=== PATIENT | male | born 1950 | race African-American/Black ===

== ENCOUNTER 2019-03-16 12:43 | Emergency (ER) | payer MEDICARE, MEDICAID ==
[~2019-03-16] VITALS: Ht 172.7 cm; Wt 50.0 kg
[2019-03-16] MEDS ORDERED: ACETAMINOPHEN 325MG TABLET PO STA (15:04)
[2019-03-16 18:15] VITALS: BP 141/60
== END 2019-03-16 18:42 | disposition home or self-care (01) ==
LOC: ER 12:43
DX: S09.8XXA Other specified injuries of head, initial encounter (principal); F03.90 Unspecified dementia, unspecified severity, without behavioral disturbance, psychotic disturbance, mood disturbance, and anxiety; G40.909 Epilepsy, unspecified, not intractable, without status epilepticus; Z88.0 Allergy status to penicillin; W01.0XXA Fall on same level from slipping, tripping and stumbling without subsequent striking against object, initial encounter; Y93.89 Activity, other specified; Y92.018 Other place in single-family (private) house as the place of occurrence of the external cause
CPT/HCPCS: 99284

== ENCOUNTER 2019-04-26 21:56 | Emergency (ER) | payer MEDICARE, MEDICAID ==
[~2019-04-26] VITALS: Ht 177.8 cm; Wt 59.0 kg
[2019-04-26] MEDS ORDERED: OLANZAPINE 10 MG/VIAL IM ONE (23:00)
[2019-04-26] MEDS ORDERED: TETANUS, DIPHTHERIA, PERTUSSIS VAC/PF 0.5ML (>7YR OLD) IM ONE (23:00)
[2019-04-26] MEDS ORDERED: LIDOCAINE HCL/EPINEPHRINE 1%-EPI 1:100,000 30 ML VIAL INFIL ONE (23:00)
[2019-04-26] MEDS ORDERED: LIDOCAINE HCL/EPINEPHRINE 1%-EPI 1:100,000 20 ML VIAL INFIL SCH (23:00)
[2019-04-26] MEDS: CLINDAMYCIN HCL 150MG CAPSULE PO SCH ×2 (23:26→23:39)
[2019-04-27 01:47] VITALS: BP 122/72
== END 2019-04-27 02:27 | disposition home or self-care (01) ==
LOC: ER 21:56
DX: S01.511A Laceration without foreign body of lip, initial encounter (principal); S01.112A Laceration without foreign body of left eyelid and periocular area, initial encounter; S00.01XA Abrasion of scalp, initial encounter; G40.909 Epilepsy, unspecified, not intractable, without status epilepticus; F03.90 Unspecified dementia, unspecified severity, without behavioral disturbance, psychotic disturbance, mood disturbance, and anxiety; Z88.0 Allergy status to penicillin; W01.0XXA Fall on same level from slipping, tripping and stumbling without subsequent striking against object, initial encounter; Y93.89 Activity, other specified; Y92.128 Other place in nursing home as the place of occurrence of the external cause
CPT/HCPCS: 12011; 70450; 90471; 90715; 96372; 99284; J3490